=== PATIENT | male | born 2000 | race Caucasian/White ===

== ENCOUNTER 2022-07-08 15:21 | Emergency (ER) | payer OTHER, SELFPAY ==
[2022-07-08 15:35] VITALS: BP 168/75; PULSE 105; RESP 17; TEMP 36.6; O2SAT 100; BMI 20.3
[2022-07-08] MEDS: ACETAMINOPHEN 325 MG TABLET 975 MG PO (16:26)
[2022-07-08] MEDS: ONDANSETRON 4 MG ODT PO (18:12)
--- NOTE | 2022-07-08 20:10 | ED.WOUNDLAC ---
HPI - Wound/Laceration General Chief Complaint: Wound/Laceration Stated Complaint: fell/right moncada injury Time Seen by Provider: 07/08/22 19:35 Source: patient Mode of arrival: Ambulatory History of Present Illness HPI narrative: Patient is a 21-year-old male who is here for evaluation of a laceration to his right moncada. He states he was hiking [place] a local [place] when he fell and cut his leg on a rock. It was covered with a bandage prior to arrival. No other interventions. No other injuries from the event. Related Data Home Medications Medication Instructions Recorded Confirmed No Known Home Medications 07/08/22 07/08/22 Allergies Allergy/AdvReac Type Severity Reaction Status Date / Time No Known Drug Allergies Allergy Verified 07/08/22 15:38 Review of Systems Constitutional Constitutional: Reports system reviewed and no additional complaints, except as documented Musculoskeletal Musculoskeletal: Reports system reviewed and no additional complaints, except as documented Integumentary/Breasts Skin/Breast: Reports system reviewed and no additional complaints, except as documented Patient History Social History Smoking Status: Never smoker Smoking Status: Never smoker alcohol intake frequency: a few times a week Substance Use Type: marijuana Exam Initial Vital Signs Initial Vital Signs: Vital Signs Temperature 98 F 07/08/22 15:35 Pulse Rate 105 H 07/08/22 15:35 Respiratory Rate 17 07/08/22 15:35 Blood Pressure 168/75 H 07/08/22 15:35 Pulse Oximetry 100 07/08/22 15:35 Oxygen Delivery Method 07/08/22 15:35 Skin Other: 5 cm linear laceration to the anterior aspect of the right moncada. No active bleeding. Neuro General: patient alert and patient awake Extrem Other: Patient is ambulatory. Right knee and right ankle unremarkable. Procedures Laceration Repair Laceration 1: Site: lower extremity Side (If applicable): right Size (cm): 5 Description: linear Depth: simple, single layer Local Anesthetic: lidocaine 1% Amount of anesthesia used (mL): 5 Pre-repair: wound explored and deep structures intact Skin layer closed with: nylon Skin layer suture size: 4-0 Number of sutures: 7 Technique: simple, interrupted Course Orders Ordered: Discontinued Medications Acetaminophen (Acetaminophen 325 Mg Tablet) 975 mg PO NOW ONE Stop: 07/08/22 16:19 Last Admin: 07/08/22 16:26 Dose: 975 mg Documented By: DENIA Bacitracin (Bacitracin Oint 0.9 Gm Pckt) 2 applic TOP NOW ONE Stop: 07/08/22 20:08 Last Admin: 07/08/22 20:22 Dose: 2 applic Documented By: BECKY Ondansetron HCl (Ondansetron 4 Mg Odt) 4 mg PO NOW ONE Stop: 07/08/22 17:53 Last Admin: 07/08/22 18:12 Dose: 4 mg Documented By: OLGA Vital Signs Vital signs: Vital Signs - 8 hr 07/08/22 15:35 Temperature 98 F Pulse Rate 105 H Respiratory Rate 17 Blood Pressure 168/75 H Pulse Oximetry 100 Oxygen Delivery Method Room Air MDM - Wound/Laceration MDM Narrative Medical decision making narrative: Laceration was closed as described above. No other injuries from the event. Wound was clean. Discharged home with care instructions and return precautions. He expressed understanding and agreement. Discharge Plan Departure Patient Disposition: Home Clinical Impression: Laceration Instructions: DI for Laceration Repair Activity Restrictions/Additional Instructions: You can keep the area covered with a bandage. You can put topical antibiotic ointment over the area. You can shower like normal. The stitches do need to be removed in 7-10 days. Return to the emergency department for any new or worsening symptoms. Prescriptions: No Action No Known Home Medications
[2022-07-08] MEDS: BACITRACIN OINT 0.9 GM PCKT 2 APPLIC TOP (20:22)
== END 2022-07-08 20:24 | disposition home or self-care (01) ==
PROVIDERS: Emergency Provider Emergency Medicine
DX: S81.811A Laceration without foreign body, right lower leg, initial encounter (principal); W18.00XA Striking against unspecified object with subsequent fall, initial encounter
CPT/HCPCS: 12002; 99283